=== PATIENT | female | born 1935 | race African-American/Black ===

== ENCOUNTER 2022-04-04 11:09 | Day surgery (SDC) | payer OTHER ==
[2022-03-24 13:05] VITALS: BMI 27.4
[~2022-04-04 11:09] MED LIST: CYCLOPENTOLATE HCL 1% OPHTH SOLN 2 ML BOTTLE OS SCH; KETOROLAC TROMETHAMINE 0.5% EYE DROP 1 DROP DROPS OS SCH; LACTATED RINGERS SOLUTION 1,000 ML IV SCH; OFLOXACIN 0.3% OPHTHALMIC SOLUTION 5 ML BOTTLE OS SCH; ONDANSETRON 4 MG/2 ML VIAL IVPUSH PRN; PHENYLEPHRINE 2.5% OPHTH SOLN 15 ML BOTTLE OS SCH; TROPICAMIDE 1% OPHTH SOLN 15 ML BOTTLE OS SCH
[2022-04-04] MEDS ORDERED: MIDAZOLAM HCL 2 MG/2 ML SINGLE DOSE VIAL ONE (11:17)
[2022-04-04] MEDS ORDERED: ACETAMINOPHEN 325 MG TABLET (FP) PO PRN (11:36)
[2022-04-04] MEDS ORDERED: TROPICAMIDE 1% OPHTH SOLN 15 ML BOTTLE ONE (11:38)
[2022-04-04] MEDS ORDERED: OFLOXACIN 0.3% OPHTHALMIC SOLUTION 5 ML BOTTLE ONE (11:38)
[2022-04-04] MEDS ORDERED: CYCLOPENTOLATE HCL 1% OPHTH SOLN 2 ML BOTTLE ONE (11:38)
[2022-04-04] MEDS ORDERED: PHENYLEPHRINE 2.5% OPHTH SOLN 15 ML BOTTLE ONE (11:38)
[2022-04-04] MEDS ORDERED: KETOROLAC TROMETHAMINE 0.5% EYE DROP 1 DROP DROPS ONE (11:38)
[2022-04-04 12:50] VITALS: RESP 18; TEMP 98.1
[2022-04-04 13:14] VITALS: BP 134/71; PULSE 75
== END 2022-04-04 13:15 | disposition home or self-care (01) ==
LOC: FASU 11:09
PROVIDERS: ATTEND Ophthalmology
PROC: 08RJ3JZ Replacement of Right Lens with Synthetic Substitute, Percutaneous Approach (ICD-10-PCS; principal; 2022-04-04 12:14)
DX: H25.11 Age-related nuclear cataract, right eye (principal)
CPT/HCPCS: 66984; V2632; 82962

== ENCOUNTER 2022-04-18 07:46 | Day surgery (SDC) | payer OTHER ==
[2022-04-13 15:17] VITALS: BMI 27.4
[~2022-04-18 07:46] MED LIST changes: +BACITRACIN/POLYMYXIN OPH OINT 3.5 GM TUBE ONE; +BETAXOLOL HCL 0.25% OPHTHALMIC 10 ML DROPSBTL ONE; +BSS (NA/CA/MG/K) BALANCED SALT SOLUTION OPHTH SOLN 15 ML BOTTLE ONE; -CYCLOPENTOLATE HCL 1% OPHTH SOLN 2 ML BOTTLE OS SCH; +EPI-SHUGARCAINE (EPINEPHRINE 0.025% & LIDOCAINE-PF 0.75%) 4ML ONE; -KETOROLAC TROMETHAMINE 0.5% EYE DROP 1 DROP DROPS OS SCH; -LACTATED RINGERS SOLUTION 1,000 ML IV SCH; +NEO/POLYMYX B SULF/DEXAMETH OPHTHALMIC 5ML BOTTLE ONE; -OFLOXACIN 0.3% OPHTHALMIC SOLUTION 5 ML BOTTLE OS SCH; -ONDANSETRON 4 MG/2 ML VIAL IVPUSH PRN; -PHENYLEPHRINE 2.5% OPHTH SOLN 15 ML BOTTLE OS SCH; +POVIDONE-IODINE 5% OPHTHALMIC PREP 30 ML SOLUTION ONE; +TETRACAINE 0.5% OPHTH SOLN 2 ML BOTTLE ONE; +TROPICAMIDE 1% OPHTH SOLN 15 ML BOTTLE ONE; -TROPICAMIDE 1% OPHTH SOLN 15 ML BOTTLE OS SCH
[2022-04-18] MEDS ORDERED: CYCLOPENTOLATE HCL 1% OPHTH SOLN 2 ML BOTTLE OS SCH (08:00)
[2022-04-18] MEDS ORDERED: KETOROLAC TROMETHAMINE 0.5% EYE DROP 1 DROP DROPS OS SCH (08:00)
[2022-04-18] MEDS ORDERED: OFLOXACIN 0.3% OPHTHALMIC SOLUTION 5 ML BOTTLE OS SCH (08:00)
[2022-04-18] MEDS ORDERED: TROPICAMIDE 1% OPHTH SOLN 15 ML BOTTLE OS SCH (08:00)
[2022-04-18] MEDS ORDERED: PHENYLEPHRINE 2.5% OPHTH SOLN 15 ML BOTTLE OS SCH (08:00)
[2022-04-18 08:10] VITALS: RESP 20
[2022-04-18] MEDS ORDERED: KETOROLAC TROMETHAMINE 0.5% EYE DROP 1 DROP DROPS OS ONE ×3 (08:20→08:30)
[2022-04-18] MEDS ORDERED: TROPICAMIDE 1% OPHTH SOLN 15 ML BOTTLE OS ONE ×3 (08:20→08:30)
[2022-04-18] MEDS ORDERED: PHENYLEPHRINE 2.5% OPTHALMIC DROP BOTTLE OS ONE ×3 (08:20→08:30)
[2022-04-18] MEDS ORDERED: CYCLOPENTOLATE HCL 1% OPHTH SOLN 2 ML BOTTLE OS ONE ×3 (08:20→08:30)
[2022-04-18] MEDS ORDERED: OFLOXACIN 0.3% OPHTHALMIC SOLUTION 5 ML BOTTLE OS ONE ×3 (08:20→08:30)
[2022-04-18] MEDS ORDERED: MIDAZOLAM HCL 2 MG/2 ML SINGLE DOSE VIAL ONE (09:17)
[2022-04-18] MEDS ORDERED: ACETAMINOPHEN 325 MG TABLET (FP) PO PRN (09:49)
[2022-04-18 09:59] VITALS: TEMP 97.2
[2022-04-18] MEDS ORDERED: POVIDONE-IODINE 5% OPHTHALMIC PREP 30 ML SOLUTION ONE (10:01)
[2022-04-18 10:29] VITALS: BP 139/71; PULSE 63
== END 2022-04-18 11:05 | disposition home or self-care (01) ==
LOC: FASU 07:46
PROVIDERS: ATTEND Ophthalmology
PROC: 08RK3JZ Replacement of Left Lens with Synthetic Substitute, Percutaneous Approach (ICD-10-PCS; principal; 2022-04-18 09:26)
DX: H25.12 Age-related nuclear cataract, left eye (principal)
CPT/HCPCS: 66984; V2632; 82962